=== PATIENT | male | born 1955 | race African-American/Black ===

== ENCOUNTER 2016-06-28 01:17 | Emergency (ER) | payer MEDICARE, MEDICAID ==
[~2016-06-28] VITALS: Ht 165.1 cm; Wt 59.0 kg
[~2016-06-28 01:17] MED LIST: ALBU8.5H5 INH; AMLO5TAB2 PO; ASPI81TA50 PO; CEFT1FRO2 IVPB; CYCL-259 PO; DIAZ5TAB PO; ENAL10TA PO; GABA300C PO; HYDR-3307 PO; METR500P29 IVPB; NICO1PAT4 TD; PANT40TA3 PO; TAMS-11 PO
[2016-06-28] MEDS ORDERED: KETOROLAC 30 MG/1 ML IM ONE (03:00)
[2016-06-28] MEDS ORDERED: KETOROLAC 30 MG/1 ML ONE (03:23)
[2016-06-28 03:36] VITALS: BP 117/81
== END 2016-06-28 03:38 | disposition home or self-care (01) ==
LOC: ED 03:30
DX: S90.32XA Contusion of left foot, initial encounter (principal); I10 Essential (primary) hypertension; M54.16 Radiculopathy, lumbar region; Z88.5 Allergy status to narcotic agent; W20.8XXA Other cause of strike by thrown, projected or falling object, initial encounter; Y93.89 Activity, other specified; Y99.8 Other external cause status; Y92.009 Unspecified place in unspecified non-institutional (private) residence as the place of occurrence of the external cause
CPT/HCPCS: 73630; 96372; 99284; J1885

== ENCOUNTER 2016-08-31 01:47 | Emergency (ER) | payer MEDICARE, MEDICAID ==
[~2016-08-31] VITALS: Ht 165.1 cm; Wt 52.1 kg
[2016-08-31] MEDS ORDERED: DIPHENHYDRAMINE 25 MG CAPSULE ONE (02:45)
[2016-08-31] MEDS ORDERED: PREG150C PO (02:51)
[2016-08-31] MEDS ORDERED: DULO30CA2 PO (02:51)
[2016-08-31] MEDS ORDERED: DIPHENHYDRAMINE 25 MG CAPSULE PO ONE (03:00)
[2016-08-31 03:29] VITALS: BP 126/80
== END 2016-08-31 03:36 ==
LOC: ED 03:33
DX: R21 Rash and other nonspecific skin eruption (principal); L42 Pityriasis rosea; I10 Essential (primary) hypertension; M19.90 Unspecified osteoarthritis, unspecified site
CPT/HCPCS: 99283; J7512; Q0163

== ENCOUNTER → 2017-06-23 | Outpatient (CLI) | payer MEDICARE, MEDICAID ==
[~2017-06-23] MED LIST changes: +AMIT50TA PO; +DULO30CA2 PO; +FENT1PAT9 TD; +HYDR-3245 PO; +NICO-486 TD; -NICO1PAT4 TD; +PREG150C PO
[2017-06-23 14:27] LABS: MEAN CORPUSCULAR HEMOGLOBIN 29.1 pg (27.5-34.5); MEAN CORPUSCULAR HGB CONC 32.1 g/dL (33.2-36.2); MEAN CORPUSCULAR VOLUME 90.4 fL (81-97); MEAN PLATELET VOLUME 7.5 fL (7.4-10.4); PLATELET COUNT 286 x10^3/uL (130-400); RED BLOOD COUNT 4.68 x10^6/uL (4.38-5.82); RED CELL DISTRIBUTION WIDTH 13.4 % (9.4-14.8)
[2017-06-23 14:35] LABS: MICROSCOPIC NOT IND
[2017-06-23 14:44] LABS: CULTURE INDICATED? NO
[2017-06-23 14:59] LABS: BASOPHILS # (AUTO) 0.05 x10^3/uL (0-0.1); BASOPHILS % (AUTO) 0 % (0-1); EOSINOPHILS # (AUTO) 0.02 x10^3/uL (0-0.4); EOSINOPHILS % (AUTO) 0 % (1-7); LYMPHOCYTES # (AUTO) 2.47 x10^3/uL (1-3.4); LYMPHOCYTES % (AUTO) 23 % (22-44); MD SCAN; MONOCYTES # (AUTO) 0.76 x10^3/uL (0.2-0.8); MONOCYTES % (AUTO) 7 % (2-9); NEUTROPHILS # (AUTO) 7.43 x10^3/uL (1.8-6.8); NEUTROPHILS % (AUTO) 69 % (42-75)
[2017-06-23 15:00] LABS: ALBUMIN 3.6 g/dL (3.4-5.0); ANION GAP 8 mmol/L (5-15); CALCIUM 8.5 mg/dL (8.5-10.1); CHLORIDE 108 mmol/L (98-107); INTERNATIONAL NORMALIZED RATIO 0.95 (0.93-1.1); PROTHROMBIN TIME 9.8 Seconds (9.6-11.5)
[2017-06-23 15:03] LABS: ALANINE AMINOTRANSFERASE 56 U/L (12-78); ALKALINE PHOSPHATASE 142 U/L (45-117); BILIRUBIN,TOTAL 0.7 mg/dL (0.2-1.0); TOTAL PROTEIN 7.2 g/dL (6.4-8.2)
== END | disposition home or self-care (01) ==
LOC: STAR 13:14
PROVIDERS: ATTEND Orthopaedic Surgery Orthopaedic Surgery of the Spine
DX: Z01.818 Encounter for other preprocedural examination (principal); I10 Essential (primary) hypertension; M48.061 Spinal stenosis, lumbar region without neurogenic claudication; Z87.891 Personal history of nicotine dependence
CPT/HCPCS: 36415; 71046; 80053; 81003; 85025; 85610; 85730; 93005

== ENCOUNTER 2017-06-28 06:48 | Inpatient (IN) | payer MEDICARE, MEDICAID ==
[~2017-06-28] VITALS: Ht 165.1 cm; Wt 55.6 kg
[2017-06-28 07:52] VITALS: BP 143/87
[2017-06-28] MEDS ORDERED: LACTATED RINGERS 1,000 ML IV SCH (07:52)
[2017-06-28] MEDS ORDERED: LIDOCAINE-MPF 1%, 2ML ONE (08:09)
[2017-06-28] MEDS ORDERED: LIDOCAINE/PF 0.5% ,50ML ONE (08:15)
[2017-06-28] MEDS ORDERED: BUPIVACAINE/PF 0.25% ONE (08:15)
[2017-06-28] MEDS ORDERED: THROMBIN 5,000 UNIT VIAL TP ONE (08:15)
[2017-06-28] MEDS ORDERED: EPINEPHRINE 1 MG/ML, 1ML ONE (08:16)
[2017-06-28] MEDS ORDERED: MIDAZOLAM 1 MG/ML, 2ML ONE (08:21)
[2017-06-28] MEDS ORDERED: FENTANYL PF 250 MCG/5ML ONE ×2 (08:22→10:15)
[2017-06-28] MEDS ORDERED: ROCURONIUM 10MG/ML,5ML ONE ×2 (08:23→10:15)
[2017-06-28] MEDS ORDERED: PROPOFOL 10 MG/ML, 20ML ONE (08:23)
[2017-06-28] MEDS ORDERED: GLYCOPYRROLATE 0.4 MG/2 ML, 2ML ONE ×2 (08:24→11:28)
[2017-06-28] MEDS ORDERED: NEOSTIGMINE 1 MG/ML, 10ML ONE (08:24)
[2017-06-28] MEDS ORDERED: CEFAZOLIN 1,000 MG ONE ×2 (08:25)
[2017-06-28] MEDS ORDERED: WATER-INJECTION,STERILE 10 ML IV ONE (08:25)
[2017-06-28] MEDS ORDERED: PROMETHAZINE 12.5 MG SUPP PR PRN (09:00)
[2017-06-28] MEDS ORDERED: ONDANSETRON 2MG/ML, 2ML IVPush PRN ×2 (09:00→13:30)
[2017-06-28] MEDS ORDERED: hydrALAzine 20 MG/ML, 1ML IV PRN (09:00)
[2017-06-28] MEDS ORDERED: OXYcodone 5 MG/5 ML ORAL.SOL UDC PO PRN (09:00)
[2017-06-28] MEDS ORDERED: ACETAMINOPHEN 325 MG TABLET PO PRN (09:00)
[2017-06-28] MEDS ORDERED: PROMETHAZINE 25 MG/ML, 1ML IV PRN (09:00)
[2017-06-28] MEDS ORDERED: LABETALOL 5MG/ML, 20ML IV PRN (09:00)
[2017-06-28] MEDS: VANCOMYCIN 1,000 MG ONE ×2 (10:28→11:15)
[2017-06-28] MEDS ORDERED: FENTANYL PF 100 MCG/2ML ONE ×2 (12:25→13:49)
[2017-06-28] MEDS ORDERED: ACETAMINOPHEN 650 MG/20.3 ML UDC ONE (12:25)
[2017-06-28] MEDS ORDERED: OXYcodone 5 MG/5 ML ORAL.SOL UDC ONE (12:25)
[2017-06-28] MEDS ORDERED: MEPERIDINE/PF 50 MG/ML ONE (12:25)
[2017-06-28] MEDS: FENTANYL PF 100 MCG/2ML IV PRN ×2 (12:28→12:38)
[2017-06-28] MEDS: MEPERIDINE/PF 25MG/0.5ML IVPush PRN ×2 (12:29→13:43)
[2017-06-28] MEDS ORDERED: HYDROmorphone 2 MG/ML, 1ML ONE (12:32)
[2017-06-28] MEDS: HYDROmorphone 1 MG/ML, 1ML IV PRN ×4 (12:33→13:38)
[2017-06-28] MEDS: DIAZEPAM 5 MG/ML, 2ML IVPush PRN ×2 (12:43→13:27)
[2017-06-28] MEDS ORDERED: BISACODYL 10 MG SUPP PR PRN (13:30)
[2017-06-28] MEDS ORDERED: LABETALOL 5MG/ML, 20ML IVPush PRN (13:30)
[2017-06-28] MEDS ORDERED: SENNA/DOCUSATE TABLET PO PRN (13:30)
[2017-06-28] MEDS ORDERED: PHARMACY MAY ADJ FOR RENAL FX MC PRN ×3 (13:30)
[2017-06-28] MEDS ORDERED: HYDROcodone/APAP 5/325 TABLET PO PRN (13:30)
[2017-06-28] MEDS ORDERED: HYDROcodone/APAP 10/325 MG TABLET PO PRN (13:30)
[2017-06-28] MEDS ORDERED: MAGNESIUM HYDROXIDE 8%, 30ML UDC PO PRN (13:30)
[2017-06-28] MEDS ORDERED: LABETALOL 5MG/ML 40ML VIAL IVPush SCH (13:30)
[2017-06-28] MEDS ORDERED: FENTANYL 1500 MCG/30 ML PCA IV PRN (14:00)
[2017-06-28 14:23] VITALS: BP 123/81
[2017-06-28] MEDS ORDERED: FENTANYL 25 MCG PATCH TD SCH (16:00)
[2017-06-28] MEDS: TAMSULOSIN 0.4 MG CAP.ER.24H PO SCH ×2 (16:55→22:52)
[2017-06-28] MEDS: CEFAZOLIN PMX 1GM/50ML 50 ML IVPB SCH (17:40)
[2017-06-28] MEDS: NS + 20MEQ KCL 1,000 ML IV SCH (17:41)
[2017-06-28 19:15] VITALS: BP 99/61
[2017-06-29] VITALS: BP 143/72
[2017-06-29] MEDS ORDERED: FENTANYL PF 100 MCG/2ML IV ONE
[2017-06-29] MEDS: METHOCARBAMOL 500 MG TABLET PO SCH ×5 (00:07→23:34)
[2017-06-29] MEDS: CEFAZOLIN PMX 1GM/50ML 50 ML IVPB SCH ×3 (01:29→17:22)
[2017-06-29 03:40] VITALS: BP 124/66
[2017-06-29 05:56] LABS: BASOPHILS # (AUTO) 0.03 x10^3/uL (0-0.1); BASOPHILS % (AUTO) 0 % (0-1); EOSINOPHILS # (AUTO) 0.03 x10^3/uL (0-0.4); EOSINOPHILS % (AUTO) 0 % (1-7); LYMPHOCYTES # (AUTO) 2.18 x10^3/uL (1-3.4); LYMPHOCYTES % (AUTO) 17 % (22-44); MD NO; MEAN CORPUSCULAR HEMOGLOBIN 29.2 pg (27.5-34.5); MEAN CORPUSCULAR HGB CONC 32.3 g/dL (33.2-36.2); MEAN CORPUSCULAR VOLUME 90.4 fL (81-97); MEAN PLATELET VOLUME 7.3 fL (7.4-10.4); MONOCYTES # (AUTO) 1.29 x10^3/uL (0.2-0.8); MONOCYTES % (AUTO) 10 % (2-9); NEUTROPHILS # (AUTO) 9.35 x10^3/uL (1.8-6.8); NEUTROPHILS % (AUTO) 73 % (42-75); PLATELET COUNT 255 x10^3/uL (130-400); RED BLOOD COUNT 3.67 x10^6/uL (4.38-5.82); RED CELL DISTRIBUTION WIDTH 13.8 % (9.4-14.8)
[2017-06-29 06:18] LABS: CALCIUM 8.1 mg/dL (8.5-10.1)
[2017-06-29 06:21] LABS: ANION GAP 8 mmol/L (5-15); CHLORIDE 110 mmol/L (98-107)
[2017-06-29] MEDS: NS + 20MEQ KCL 1,000 ML IV SCH ×2 (06:33→19:29)
[2017-06-29 07:20] VITALS: BP 136/83
[2017-06-29 07:42] VITALS: BP 114/77
[2017-06-29] MEDS ORDERED: AMLODIPINE 5 MG TABLET PO SCH (09:00)
[2017-06-29] MEDS ORDERED: TAMSULOSIN 0.4 MG CAP.ER.24H PO SCH (09:00)
[2017-06-29] MEDS ORDERED: KETOROLAC 30 MG/1 ML ONE (09:28)
[2017-06-29] MEDS ORDERED: FENTANYL 50 MCG PATCH TD SCH (09:30)
[2017-06-29] MEDS ORDERED: FENTANYL REMOVE PATCH NOTE XX SCH (09:30)
[2017-06-29] MEDS ORDERED: HYDROmorphone 2 MG/ML, 1ML IV ONE (09:30)
[2017-06-29] MEDS ORDERED: FENTANYL 1500 MCG/30 ML PCA IV PRN ×2 (09:30)
[2017-06-29] MEDS: MAGNESIUM HYDROXIDE 8%, 30ML UDC PO SCH ×2 (09:30→17:22)
[2017-06-29] MEDS ORDERED: KETOROLAC 30 MG/1 ML IV ONE (09:30)
[2017-06-29] MEDS: DOCUSATE 100 MG CAPSULE PO SCH (09:43)
[2017-06-29] MEDS ORDERED: HYDROmorphone 1 MG/ML, 1ML IV PRN (10:00)
[2017-06-29] MEDS ORDERED: HYDROmorphone 2 MG/ML, 1ML ONE (10:15)
[2017-06-29] MEDS: HYDROmorphone 2MG TABLET PO PRN ×4 (10:19→23:35)
[2017-06-29] MEDS: TAMSULOSIN 0.4 MG CAP.ER.24H PO SCH ×2 (12:06→19:29)
[2017-06-29 13:00] VITALS: BP 92/69
[2017-06-29 19:36] VITALS: BP 120/77
[2017-06-30] MEDS: CEFAZOLIN PMX 1GM/50ML 50 ML IVPB SCH ×2 (01:19→09:30)
[2017-06-30] MEDS: MAGNESIUM HYDROXIDE 8%, 30ML UDC PO SCH (01:19)
[2017-06-30 01:31] VITALS: BP 115/74
[2017-06-30] MEDS: HYDROmorphone 2MG TABLET PO PRN ×2 (03:34→07:34)
[2017-06-30 05:40] LABS: BASOPHILS # (AUTO) 0.09 x10^3/uL (0-0.1); BASOPHILS % (AUTO) 1 % (0-1); EOSINOPHILS # (AUTO) 0.11 x10^3/uL (0-0.4); EOSINOPHILS % (AUTO) 1 % (1-7); LYMPHOCYTES # (AUTO) 2.62 x10^3/uL (1-3.4); LYMPHOCYTES % (AUTO) 25 % (22-44); MD NO; MEAN CORPUSCULAR HEMOGLOBIN 29.5 pg (27.5-34.5); MEAN CORPUSCULAR HGB CONC 32.6 g/dL (33.2-36.2); MEAN CORPUSCULAR VOLUME 90.4 fL (81-97); MONOCYTES % (AUTO) 12 % (2-9); NEUTROPHILS # (AUTO) 6.42 x10^3/uL (1.8-6.8); NEUTROPHILS % (AUTO) 61 % (42-75); PLATELET COUNT 247 x10^3/uL (130-400); RED BLOOD COUNT 3.21 x10^6/uL (4.38-5.82)
[2017-06-30 05:51] LABS: ANION GAP 5 mmol/L (5-15); CALCIUM 7.9 mg/dL (8.5-10.1); CHLORIDE 111 mmol/L (98-107); CREATININE 0.52 mg/dL (0.7-1.3)
[2017-06-30] MEDS: METHOCARBAMOL 500 MG TABLET PO SCH ×2 (05:54→12:02)
[2017-06-30 07:02] VITALS: BP 124/66
[2017-06-30] MEDS ORDERED: HYDROmorphone 2 MG/ML, 1ML ONE (07:28)
[2017-06-30] MEDS: NS + 20MEQ KCL 1,000 ML IV SCH (07:34)
[2017-06-30] MEDS ORDERED: AMLODIPINE 5 MG TABLET PO SCH (09:26)
[2017-06-30] MEDS ORDERED: BISACODYL 10 MG SUPP PR ONE (09:30)
[2017-06-30] MEDS: TAMSULOSIN 0.4 MG CAP.ER.24H PO SCH (09:39)
[2017-06-30] MEDS: OXYcodone IR 5MG TABLET PO PRN ×2 (09:40→13:20)
[2017-06-30] MEDS: DOCUSATE 100 MG CAPSULE PO SCH (10:38)
[2017-06-30 13:57] VITALS: BP 113/75
[2017-06-30] MEDS ORDERED: CEPH-368 PO (15:13)
[2017-06-30] MEDS ORDERED: OXYC10TA6 PO (15:13)
[2017-06-30] MEDS ORDERED: METHOCARBAMOL 750 MG TABLET PO SCH (21:30)
[2017-07-01] MEDS ORDERED: FENTANYL REMOVE PATCH NOTE XX SCH (16:00)
== END 2017-06-30 15:19 | disposition home or self-care (01) | DRG 460 ==
LOC: ORIP 06:48 → 4NOR 14:18 → DCLOUNGE 06-30 15:10
PROVIDERS: ADMIT Orthopaedic Surgery Orthopaedic Surgery of the Spine; ATTEND Orthopaedic Surgery Orthopaedic Surgery of the Spine
PROC: 0SP00AZ Removal of Interbody Fusion Device from Lumbar Vertebral Joint, Open Approach (ICD-10-PCS; 2017-06-28)
PROC: 0SG00K1 Fusion of Lumbar Vertebral Joint with Nonautologous Tissue Substitute, Posterior Approach, Posterior Column, Open Approach (ICD-10-PCS; principal; 2017-06-28 09:00)
DX: M48.061 Spinal stenosis, lumbar region without neurogenic claudication (principal); F17.210 Nicotine dependence, cigarettes, uncomplicated; M43.16 Spondylolisthesis, lumbar region; G89.29 Other chronic pain; N40.0 Benign prostatic hyperplasia without lower urinary tract symptoms; I10 Essential (primary) hypertension; Z88.6 Allergy status to analgesic agent
CPT/HCPCS: 36415; 72100; 80048; 85025; C1713; J0171; J0690; J1170; J1885; J2001; J2175; J2250; J2704; J2710; J3010; J3360; J3370; J3480; J3490; C1762; J7120

== ENCOUNTER 2017-09-24 15:17 | Inpatient (IN) | payer MEDICARE, MEDICAID ==
[~2017-09-24] VITALS: Ht 165.1 cm; Wt 53.0 kg
[~2017-09-24 15:17] MED LIST changes: +CEPH-368 PO; +OXYC10TA6 PO
[2017-09-24] MEDS ORDERED: SODIUM CHLORIDE 0.9% 1,000ML IVBOLUS ONE (15:30)
[2017-09-24] MEDS ORDERED: OXYcodone/APAP 5/325MG TABLET PO ONE (15:30)
[2017-09-24] MEDS ORDERED: SODIUM CHLORIDE FLUSH 10ML SYR IVF ONE (15:30)
[2017-09-24] MEDS ORDERED: OXYcodone/APAP 5/325MG TABLET ONE (16:00)
[2017-09-24] MEDS ORDERED: PLEASE ENTER HEIGHT AND WEIGHT MC SCH (16:00)
[2017-09-24 16:08] LABS: BASOPHILS # (AUTO) 0.04 x10^3/uL (0-0.1); BASOPHILS % (AUTO) 0 % (0-1); EOSINOPHILS # (AUTO) 0.02 x10^3/uL (0-0.4); EOSINOPHILS % (AUTO) 0 % (1-7); LYMPHOCYTES # (AUTO) 3.97 x10^3/uL (1-3.4); LYMPHOCYTES % (AUTO) 24 % (22-44); MD NO; MEAN CORPUSCULAR HEMOGLOBIN 28.9 pg (27.5-34.5); MEAN CORPUSCULAR HGB CONC 32.7 g/dL (33.2-36.2); MEAN CORPUSCULAR VOLUME 88.5 fL (81-97); MONOCYTES # (AUTO) 0.89 x10^3/uL (0.2-0.8); MONOCYTES % (AUTO) 5 % (2-9); NEUTROPHILS # (AUTO) 11.47 x10^3/uL (1.8-6.8); NEUTROPHILS % (AUTO) 70 % (42-75); PLATELET COUNT 335 x10^3/uL (130-400); RED BLOOD COUNT 4.67 x10^6/uL (4.38-5.82); RED CELL DISTRIBUTION WIDTH 14.8 % (9.4-14.8)
[2017-09-24 16:15] LABS: ALANINE AMINOTRANSFERASE 33 U/L (12-78); ALBUMIN 3.8 g/dL (3.4-5.0); ANION GAP 9 mmol/L (5-15); CALCIUM 8.4 mg/dL (8.5-10.1); CHLORIDE 115 mmol/L (98-107); CREATININE 0.81 mg/dL (0.7-1.3)
[2017-09-24 16:20] LABS: ALKALINE PHOSPHATASE 148 U/L (45-117); BILIRUBIN,TOTAL 0.6 mg/dL (0.2-1.0); TOTAL PROTEIN 7.3 g/dL (6.4-8.2); TROPONIN I < 0.015 ng/mL (0.000-0.045)
[2017-09-24] MEDS ORDERED: GUAIFENESIN/DM 200-20MG, 10ML UDC PO PRN (18:00)
[2017-09-24] MEDS ORDERED: DOCUSATE 100 MG CAPSULE PO PRN (18:00)
[2017-09-24] MEDS ORDERED: hydrALAzine 20 MG/ML, 1ML IVPush PRN (18:00)
[2017-09-24] MEDS ORDERED: ONDANSETRON 2MG/ML, 2ML IVPush PRN (18:00)
[2017-09-24 18:47] VITALS: BP 152/81
[2017-09-24] MEDS: ENOXAPARIN 40 MG/0.4 ML SQ SCH (18:58)
[2017-09-24] MEDS: ACETAMINOPHEN 325 MG TABLET PO PRN ×2 (18:58→23:17)
[2017-09-24 19:44] VITALS: BP 149/81
[2017-09-24] MEDS: NICOTINE 14MG/24 HR PATCH.TD24 TD SCH (19:57)
[2017-09-24] MEDS: AMITRIPTYLINE 50 MG TABLET PO SCH (19:57)
[2017-09-24] MEDS: OXYcodone IR 5MG TABLET PO PRN (20:25)
[2017-09-24 22:19] LABS: TROPONIN I < 0.015 ng/mL (0.000-0.045)
[2017-09-25 00:34] VITALS: BP 140/82
[2017-09-25] MEDS: OXYcodone IR 5MG TABLET PO PRN ×5 (01:37→23:06)
[2017-09-25 05:15] LABS: CHLORIDE 113 mmol/L (98-107)
[2017-09-25 05:18] LABS: BASOPHILS # (AUTO) 0.04 x10^3/uL (0-0.1); BASOPHILS % (AUTO) 1 % (0-1); EOSINOPHILS # (AUTO) 0.04 x10^3/uL (0-0.4); EOSINOPHILS % (AUTO) 0 % (1-7); LYMPHOCYTES # (AUTO) 3.68 x10^3/uL (1-3.4); LYMPHOCYTES % (AUTO) 41 % (22-44); MD NO; MEAN CORPUSCULAR HEMOGLOBIN 28.8 pg (27.5-34.5); MEAN CORPUSCULAR HGB CONC 32.5 g/dL (33.2-36.2); MEAN CORPUSCULAR VOLUME 88.6 fL (81-97); MEAN PLATELET VOLUME 7.6 fL (7.4-10.4); MONOCYTES # (AUTO) 0.72 x10^3/uL (0.2-0.8); MONOCYTES % (AUTO) 8 % (2-9); NEUTROPHILS # (AUTO) 4.41 x10^3/uL (1.8-6.8); NEUTROPHILS % (AUTO) 50 % (42-75); PLATELET COUNT 306 x10^3/uL (130-400); RED BLOOD COUNT 4.18 x10^6/uL (4.38-5.82); RED CELL DISTRIBUTION WIDTH 14.7 % (9.4-14.8)
[2017-09-25 05:27] LABS: HEMOGLOBIN A1C 5.6 % (4.2-6.3)
[2017-09-25 05:32] LABS: ANION GAP 9 mmol/L (5-15); CALCIUM 8.2 mg/dL (8.5-10.1); CHOL/HDL RATIO 2.4; CHOLESTEROL, TOTAL 141 mg/dL (140-239); CREATININE 0.62 mg/dL (0.7-1.3); HDL CHOL % 42 % (26-37); HDL CHOLESTEROL (DIRECT) 59 mg/dL (40-60); LDL CHOLESTEROL,CALCULATED 67 mg/dL (54-169); LDL/HDL RATIO 1.1 (0.5-3.0); TRIGLYCERIDES 75 mg/dL (50-200); TROPONIN I < 0.015 ng/mL (0.000-0.045); VLDL CHOLESTEROL 15 mg/dL (0-25)
[2017-09-25 08:00] VITALS: BP 142/96
[2017-09-25] MEDS: AMLODIPINE 5 MG TABLET PO SCH (09:15)
[2017-09-25] MEDS: TAMSULOSIN 0.4 MG CAP.ER.24H PO SCH (09:15)
[2017-09-25] MEDS: DIPHENHYDRAMINE 25 MG CAPSULE PO PRN (09:57)
[2017-09-25 13:25] VITALS: BP 144/90
[2017-09-25] MEDS: ENOXAPARIN 40 MG/0.4 ML SQ SCH (18:06)
[2017-09-25 19:24] VITALS: BP 150/83
[2017-09-25] MEDS: AMITRIPTYLINE 50 MG TABLET PO SCH (20:03)
[2017-09-25] MEDS: NICOTINE 14MG/24 HR PATCH.TD24 TD SCH (20:03)
[2017-09-26 00:57] VITALS: BP 147/79
[2017-09-26] MEDS: OXYcodone IR 5MG TABLET PO PRN ×2 (05:54→10:03)
[2017-09-26 07:31] VITALS: BP 152/84
[2017-09-26] MEDS: DIPHENHYDRAMINE 25 MG CAPSULE PO PRN (08:08)
[2017-09-26] MEDS: TAMSULOSIN 0.4 MG CAP.ER.24H PO SCH (08:08)
[2017-09-26] MEDS: AMLODIPINE 5 MG TABLET PO SCH (08:08)
[2017-09-26] MEDS: ACETAMINOPHEN 325 MG TABLET PO PRN (08:17)
[2017-09-26] MEDS ORDERED: ASPI-621 PO (09:53)
== END 2017-09-26 11:37 | disposition home or self-care (01) | DRG 316 ==
LOC: ED 17:04 → EDIP 17:09 → ED 17:22 → 4EST 18:08 → DCLOUNGE 09-26 11:30
PROVIDERS: ADMIT Hospitalist; ATTEND Hospitalist
DX: I95.9 Hypotension, unspecified (principal); R55 Syncope and collapse; D72.829 Elevated white blood cell count, unspecified; F10.120 Alcohol abuse with intoxication, uncomplicated; Y90.9 Presence of alcohol in blood, level not specified; F17.200 Nicotine dependence, unspecified, uncomplicated; I10 Essential (primary) hypertension; N40.0 Benign prostatic hyperplasia without lower urinary tract symptoms; Z82.49 Family history of ischemic heart disease and other diseases of the circulatory system; S00.03XA Contusion of scalp, initial encounter; Z88.6 Allergy status to analgesic agent; X58.XXXA Exposure to other specified factors, initial encounter; Y93.89 Activity, other specified; Y92.89 Other specified places as the place of occurrence of the external cause; Y99.8 Other external cause status; G89.29 Other chronic pain; M54.9 Dorsalgia, unspecified; Z90.49 Acquired absence of other specified parts of digestive tract; Z98.1 Arthrodesis status
CPT/HCPCS: 0399T; 36415; 70450; 71045; 72125; 80048; 80053; 80061; 83036; 83735; 84100; 84443; 84484; 85025; 93005; 93306; 93880; 96360; J1650; J7030; Q0163

== ENCOUNTER 2018-03-24 19:44 | Emergency (ER) | payer MEDICARE, MEDICAID ==
[~2018-03-24] VITALS: Ht 165.1 cm; Wt 53.9 kg
[~2018-03-24 19:44] MED LIST changes: +AMLO-150 PO; -AMLO5TAB2 PO; +ASPI81TA45 PO
[2018-03-24 19:46] VITALS: BP 135/90
--- NOTE | 2018-03-24 20:15 | NUR ---
PT ARRIVES FROM HOME TODAY AFTER HAVING CHEST PAIN START LAST NIGHT. PT REPORTS THAT THIS MORNING WHEN HE WOKE UP HE WOKE UP SWEATING WHICH IS VERY ABNORMAL. PT REPORTS THAT HIS PAIN STARTED HAVING EPIGASTRIC PAIN AND THAT RADIATED ON LEFT SIDE OF CHEST. PT REPORTS THAT THE PAIN GET BETTER WITH REST. PT ALSO HAS HAD A FL MANY YEARS AGO. PT CONNECTED TO MONITORS AND CALL LIGHT IN REACH. AWAITING FURTHER ORDERS.
[2018-03-24 20:36] LABS: BASOPHILS # (AUTO) 0.04 x10^3/uL (0-0.1); BASOPHILS % (AUTO) 1 % (0-1); EOSINOPHILS # (AUTO) 0.04 x10^3/uL (0-0.4); EOSINOPHILS % (AUTO) 1 % (1-7); LYMPHOCYTES # (AUTO) 2.31 x10^3/uL (1-3.4); LYMPHOCYTES % (AUTO) 28 % (22-44); MD NO; MEAN CORPUSCULAR HEMOGLOBIN 31.6 pg (27.5-34.5); MEAN CORPUSCULAR VOLUME 95.6 fL (81-97); MEAN PLATELET VOLUME 7.2 fL (7.4-10.4); MONOCYTES # (AUTO) 0.62 x10^3/uL (0.2-0.8); MONOCYTES % (AUTO) 8 % (2-9); NEUTROPHILS % (AUTO) 63 % (42-75); PLATELET COUNT 272 x10^3/uL (130-400); RED CELL DISTRIBUTION WIDTH 14.3 % (9.4-14.8)
[2018-03-24 20:41] LABS: INTERNATIONAL NORMALIZED RATIO 0.93 (0.93-1.1); PROTHROMBIN TIME 9.9 Seconds (9.6-11.5)
[2018-03-24 20:42] LABS: ALANINE AMINOTRANSFERASE 28 U/L (12-78); ALBUMIN 3.7 g/dL (3.4-5.0); ANION GAP 10 mmol/L (5-15); CALCIUM 9.1 mg/dL (8.5-10.1); CHLORIDE 108 mmol/L (98-107)
[2018-03-24 20:47] LABS: ALKALINE PHOSPHATASE 123 U/L (45-117); BILIRUBIN,TOTAL 0.5 mg/dL (0.2-1.0); CREATININE 0.66 mg/dL (0.7-1.3); TOTAL PROTEIN 7.2 g/dL (6.4-8.2); TROPONIN I < 0.015 ng/mL (0.000-0.045)
--- NOTE | 2018-03-24 21:10 | NUR ---
PT AT THIS TIME WOULD LIKE TO GO HOME DESPITE MD MILLER RECOMENDATION TO STAY. DR. CAMARILLO INFORMED PT TO COME BACK IF HE HAS ANY CONCERNING SYMPTOMS OR DISTRESS. PT VERBALIZED UNDERSTANDING OF RISKS AND WOULD STILL LIKE TO GO HOME.
--- NOTE | 2018-03-24 21:13 | NUR ---
Patient/Caregiver given discharge instructions and they have confirmed that they understand the instructions. Patient ambulatory with steady gait.
== END 2018-03-24 21:34 | disposition home or self-care (01) ==
LOC: ED 21:15
DX: R07.9 Chest pain, unspecified (principal); M19.90 Unspecified osteoarthritis, unspecified site; I10 Essential (primary) hypertension
CPT/HCPCS: 36415; 71045; 80053; 83690; 84484; 85025; 85610; 85730; 93005; 99284

== ENCOUNTER 2018-04-06 20:14 | Inpatient (IN) | payer MEDICARE, MEDICAID ==
[~2018-04-06] VITALS: Ht 165.1 cm; Wt 53.8 kg
--- NOTE | 2018-04-06 20:41 | NUR ---
PT TO CT
--- NOTE | 2018-04-06 20:41 | NUR ---
Angella rossi in [facility] - 04/06/18 at 2041 by LUIS PT TO RAD
[2018-04-06 21:01] LABS: BASOPHILS # (AUTO) 0.02 x10^3/uL (0-0.1); BASOPHILS % (AUTO) 0 % (0-1); EOSINOPHILS # (AUTO) 0.02 x10^3/uL (0-0.4); EOSINOPHILS % (AUTO) 0 % (1-7); LYMPHOCYTES % (AUTO) 37 % (22-44); MD NO; MEAN CORPUSCULAR HEMOGLOBIN 31.7 pg (27.5-34.5); MEAN PLATELET VOLUME 7.3 fL (7.4-10.4); MONOCYTES # (AUTO) 0.56 x10^3/uL (0.2-0.8); MONOCYTES % (AUTO) 8 % (2-9); NEUTROPHILS # (AUTO) 4.05 x10^3/uL (1.8-6.8); NEUTROPHILS % (AUTO) 55 % (42-75); PLATELET COUNT 257 x10^3/uL (130-400); RED BLOOD COUNT 4.19 x10^6/uL (4.38-5.82); RED CELL DISTRIBUTION WIDTH 15.1 % (9.4-14.8)
[2018-04-06 21:10] LABS: ALANINE AMINOTRANSFERASE 50 U/L (12-78); ANION GAP 11 mmol/L (5-15); CALCIUM 8.3 mg/dL (8.5-10.1); CHLORIDE 113 mmol/L (98-107); CREATININE 0.66 mg/dL (0.7-1.3)
[2018-04-06 21:14] LABS: ALKALINE PHOSPHATASE 151 U/L (45-117); BILIRUBIN,TOTAL 0.6 mg/dL (0.2-1.0); TROPONIN I < 0.015 ng/mL (0.000-0.045)
[2018-04-06] MEDS: SODIUM CHLORIDE FLUSH 10ML SYR IVF SCH (22:30)
[2018-04-06] MEDS ORDERED: BISACODYL 10 MG SUPP PR PRN (22:30)
[2018-04-06] MEDS ORDERED: ONDANSETRON ODT 4 MG PO PRN (22:30)
[2018-04-06] MEDS ORDERED: POLYETHYLENE GLYCOL 17 GM PACKET PO PRN (22:30)
--- NOTE | 2018-04-06 22:33 | NUR ---
CALLED 4TH FLOOR NURSE BACK TO GIVE REPORT. RN UNAVAILABLE, SHE WILL CALL BACK
--- NOTE | 2018-04-06 22:35 | NUR ---
REPORT GIVEN TO IBAN HARDWICK
--- NOTE | 2018-04-06 23:00 | NUR ---
PT OUT OF ROOM. UNABLE TO TRANSPORT AT THIS TIME.
[2018-04-07] VITALS (11 sets, daily range): BP systolic 123–164; BP diastolic 80–106
[2018-04-07] MEDS: NICOTINE 14MG/24 HR PATCH.TD24 TD SCH (00:09)
[2018-04-07] MEDS: ACETAMINOPHEN 325 MG TABLET PO PRN ×3 (00:09→20:16)
[2018-04-07] MEDS: AMITRIPTYLINE 50 MG TABLET PO SCH ×2 (00:09→20:16)
[2018-04-07] MEDS ORDERED: HYDROcodone/APAP 5/325 TABLET PO ONE (03:00)
[2018-04-07 05:56] LABS: BASOPHILS # (AUTO) 0.04 x10^3/uL (0-0.1); BASOPHILS % (AUTO) 1 % (0-1); EOSINOPHILS # (AUTO) 0.06 x10^3/uL (0-0.4); EOSINOPHILS % (AUTO) 1 % (1-7); LYMPHOCYTES # (AUTO) 2.92 x10^3/uL (1-3.4); LYMPHOCYTES % (AUTO) 33 % (22-44); MD NO; MEAN CORPUSCULAR HEMOGLOBIN 31.7 pg (27.5-34.5); MEAN CORPUSCULAR HGB CONC 33.2 g/dL (33.2-36.2); MEAN CORPUSCULAR VOLUME 95.6 fL (81-97); MEAN PLATELET VOLUME 6.8 fL (7.4-10.4); MONOCYTES # (AUTO) 0.61 x10^3/uL (0.2-0.8); MONOCYTES % (AUTO) 7 % (2-9); NEUTROPHILS # (AUTO) 5.31 x10^3/uL (1.8-6.8); NEUTROPHILS % (AUTO) 59 % (42-75); PLATELET COUNT 237 x10^3/uL (130-400); RED BLOOD COUNT 3.84 x10^6/uL (4.38-5.82); RED CELL DISTRIBUTION WIDTH 14.6 % (9.4-14.8)
[2018-04-07 06:11] LABS: ALBUMIN 3.4 g/dL (3.4-5.0); ANION GAP 11 mmol/L (5-15); CALCIUM 7.9 mg/dL (8.5-10.1); CHLORIDE 112 mmol/L (98-107)
[2018-04-07 06:17] LABS: ALANINE AMINOTRANSFERASE 41 U/L (12-78); ALKALINE PHOSPHATASE 134 U/L (45-117); TOTAL PROTEIN 6.2 g/dL (6.4-8.2); TROPONIN I < 0.015 ng/mL (0.000-0.045)
[2018-04-07] MEDS: SENNA/DOCUSATE TABLET PO SCH (09:00)
[2018-04-07] MEDS: SODIUM CHLORIDE FLUSH 10ML SYR IVF SCH ×2 (09:00→20:17)
[2018-04-07] MEDS: AMLODIPINE 10 MG TAB PO SCH (10:03)
[2018-04-07] MEDS: TAMSULOSIN 0.4 MG CAP.ER.24H PO SCH (10:04)
[2018-04-07 12:07] LABS: TROPONIN I < 0.015 ng/mL (0.000-0.045)
[2018-04-07 12:24] LABS: MICROSCOPIC NOT IND
[2018-04-07 12:26] LABS: CULTURE INDICATED? NO
[2018-04-07 12:47] LABS: AMPHETAMINE SCREEN, URINE Negative (Negative); BARBITURATE SCREEN, URINE Negative (Negative); BENZODIAZEPINE SCREEN, URINE Negative (Negative); CANNABINOID SCREEN, URINE Negative (Negative); COCAINE SCREEN, URINE Negative (Negative); METHADONE SCREEN, URINE Negative (Negative); OPIATE SCREEN, URINE Positive (Negative)
[2018-04-08] MEDS: NICOTINE 14MG/24 HR PATCH.TD24 TD SCH (00:02)
[2018-04-08 04:40] VITALS: BP_SYST 154; BP_SYST 158; BP_SYST 162; BP_DIAS 100; BP_DIAS 104; BP_DIAS 105
[2018-04-08] MEDS: ACETAMINOPHEN 325 MG TABLET PO PRN ×2 (04:56→10:53)
[2018-04-08] MEDS: SENNA/DOCUSATE TABLET PO SCH (08:01)
[2018-04-08 08:15] VITALS: BP_SYST 135; BP_SYST 147; BP_SYST 151; BP_DIAS 89; BP_DIAS 93; BP_DIAS 97
[2018-04-08] MEDS: AMLODIPINE 10 MG TAB PO SCH (08:51)
[2018-04-08] MEDS: TAMSULOSIN 0.4 MG CAP.ER.24H PO SCH (08:51)
[2018-04-08] MEDS: SODIUM CHLORIDE FLUSH 10ML SYR IVF SCH (08:52)
[2018-04-08 14:21] VITALS: BP 123/87
== END 2018-04-08 16:19 | disposition left against medical advice (07) | DRG 73 ==
LOC: ED 21:24 → EDIP 21:37 → 4WST 23:40 → UNDODISIN 04-08 16:19
PROVIDERS: ADMIT Family Medicine; ATTEND Family Medicine
DX: G90.8 Other disorders of autonomic nervous system (principal); I61.0 Nontraumatic intracerebral hemorrhage in hemisphere, subcortical; M19.90 Unspecified osteoarthritis, unspecified site; M54.16 Radiculopathy, lumbar region; G89.29 Other chronic pain; S00.11XA Contusion of right eyelid and periocular area, initial encounter; G89.11 Acute pain due to trauma; I10 Essential (primary) hypertension; F10.20 Alcohol dependence, uncomplicated; Z53.21 Procedure and treatment not carried out due to patient leaving prior to being seen by health care provider; L72.3 Sebaceous cyst; W07.XXXA Fall from chair, initial encounter; Y93.39 Activity, other involving climbing, rappelling and jumping off; Y92.89 Other specified places as the place of occurrence of the external cause; Y99.8 Other external cause status; Z79.82 Long term (current) use of aspirin; Z82.49 Family history of ischemic heart disease and other diseases of the circulatory system; Z87.891 Personal history of nicotine dependence; Z90.49 Acquired absence of other specified parts of digestive tract
CPT/HCPCS: 36415; 70450; 70551; 71046; 72110; 80053; 80307; 81003; 84484; 85025; 93005; 93306; 93880; 95819; 99285; G0378

== ENCOUNTER 2018-07-17 22:03 | Emergency (ER) | payer MEDICARE, MEDICAID ==
[~2018-07-17] VITALS: Ht 165.1 cm; Wt 65.0 kg
--- NOTE | 2018-07-17 22:10 | NUR ---
PT BIB [facility] FOR C/O GLF WHILE FISHING. C/O R LEG PAIN.
--- NOTE | 2018-07-17 22:20 | NUR ---
PT TO XR VIA [facility].
[2018-07-17 23:14] VITALS: BP 125/97
--- NOTE | 2018-07-17 23:15 | NUR ---
D/C INSTRUCTIONS, MEDS, & F/U APPT RV'WD WITH PT, HE VERBALIZES UNDERSTANDING. PT AMBULATED OUT OF ED WITH WITHOUT DIFFICULTY.
== END 2018-07-17 23:24 | disposition home or self-care (01) ==
LOC: ED 23:00
DX: S80.01XA Contusion of right knee, initial encounter (principal); S70.11XA Contusion of right thigh, initial encounter; I10 Essential (primary) hypertension; M19.90 Unspecified osteoarthritis, unspecified site; W01.0XXA Fall on same level from slipping, tripping and stumbling without subsequent striking against object, initial encounter; Y93.89 Activity, other specified; Y92.89 Other specified places as the place of occurrence of the external cause; Y99.8 Other external cause status
CPT/HCPCS: 99283

== ENCOUNTER 2018-11-18 23:58 | Emergency (ER) | payer MEDICARE, MEDICAID ==
[~2018-11-18] VITALS: Ht 165.1 cm; Wt 50.8 kg
[~2018-11-18 23:58] MED LIST changes: -HYDR-3307 PO; +HYDR-36 PO
[2018-11-19 01:20] VITALS: BP 147/73
--- NOTE | 2018-11-19 01:21 | NUR ---
PT RESTING ON GURNEY, MONITORS IN PLACE, SIDERAILS UP X2, DENIES NEEDS, CALL LIGHT WITHIN REACH. AWAITING XRAY RESULTS
--- NOTE | 2018-11-19 01:36 | NUR ---
ERP AT PT'S BEDSIDE FOR RECHECK
[2018-11-19] MEDS ORDERED: KETOROLAC 60 MG/2 ML ONE (01:41)
--- NOTE | 2018-11-19 01:45 | NUR ---
PT MEDICATED PER MAR
[2018-11-19] MEDS ORDERED: KETOROLAC 30 MG/1 ML IM ONE (02:00)
== END 2018-11-19 02:01 | disposition home or self-care (01) ==
LOC: ED 11-19 00:51
DX: G89.11 Acute pain due to trauma (principal); M25.522 Pain in left elbow; M25.512 Pain in left shoulder; F17.200 Nicotine dependence, unspecified, uncomplicated; I10 Essential (primary) hypertension
CPT/HCPCS: 73060; 73080; 96372; 99283; J1885

== ENCOUNTER 2019-02-18 23:20 | Emergency (ER) | payer MEDICARE, MEDICAID ==
[~2019-02-18] VITALS: Ht 165.1 cm; Wt 50.0 kg
--- NOTE | 2019-02-18 23:37 | NUR ---
GLF X2 TODAY. W/ SECOND FALL, PT FELL OUT OF A TALL TRUCK. +LOC & HEADACHE. HIT HIS HEAD ON A STEEL POLE. NO C/O PAIN IN THE NECK. DENIES N/V. A+Ox4, ACTING APPROPRAITELY. AT BEDSIDE. PT RECENTLY HAD A SURGERY ON HIS BACK AND STATES THAT HIS LEFT LEG HAS NOT BEEN THAT SAME SINCE. PAIN 9/10 IN LEFT LEG/LEFT KNEE AREA. BEDRAILS UP X2. CALL LIGHT WITHIN REACH. WARM BLANKET PROVIDED.
[2019-02-19 01:45] VITALS: BP 148/96
== END 2019-02-19 01:48 | disposition home or self-care (01) ==
LOC: ED 23:39
DX: S00.83XA Contusion of other part of head, initial encounter (principal); I10 Essential (primary) hypertension; F17.200 Nicotine dependence, unspecified, uncomplicated; Z87.828 Personal history of other (healed) physical injury and trauma; W18.39XA Other fall on same level, initial encounter; Y93.89 Activity, other specified; Y92.89 Other specified places as the place of occurrence of the external cause; Y99.8 Other external cause status
CPT/HCPCS: 70450; 99284

== ENCOUNTER 2019-04-01 12:22 | Day surgery (SDC) | payer MEDICARE, MEDICAID ==
[~2019-04-01] VITALS: Ht 165.1 cm; Wt 49.0 kg
[2019-04-01] MEDS ORDERED: LACTATED RINGERS 1,000 ML IV SCH (12:48)
[2019-04-01 12:53] VITALS: BP 133/98
[2019-04-01] MEDS ORDERED: ACETAMINOPHEN 500 MG TABLET PO ONE (13:00)
[2019-04-01] MEDS ORDERED: GABAPENTIN 300 MG CAPSULE PO ONE (13:00)
[2019-04-01] MEDS ORDERED: OXYcodone 5 MG/5 ML ORAL.SOL UDC PO PRN (13:30)
[2019-04-01] MEDS ORDERED: EPHEDRINE 50 MG/ML, 1ML IVPush PRN (13:30)
[2019-04-01] MEDS ORDERED: HYDROmorphone 2 MG/ML, 1ML IVPush PRN (13:30)
[2019-04-01] MEDS ORDERED: PROMETHAZINE 25 MG/ML, 1ML IV PRN (13:30)
[2019-04-01] MEDS ORDERED: FENTANYL PF 100 MCG/2ML IV PRN (13:30)
[2019-04-01] MEDS ORDERED: hydrALAzine 20 MG/ML, 1ML IV PRN (13:30)
[2019-04-01] MEDS ORDERED: ONDANSETRON 2MG/ML, 2ML IV PRN (13:30)
[2019-04-01] MEDS ORDERED: MEPERIDINE/PF 25MG/ML,1ML IVPush PRN (13:30)
[2019-04-01] MEDS ORDERED: LIDOCAINE-MPF 1%, 2ML INFIL ONE (13:30)
[2019-04-01] MEDS ORDERED: LABETALOL 5MG/ML, 20ML IV PRN (13:30)
[2019-04-01] MEDS ORDERED: DEXAMETHASONE 4 MG/ML, 1ML ONE (14:03)
[2019-04-01] MEDS ORDERED: CEFAZOLIN 1,000 MG ONE (14:03)
[2019-04-01] MEDS ORDERED: PROPOFOL 10 MG/ML, 20ML ONE (14:03)
[2019-04-01] MEDS ORDERED: SUCCINYLCHOLINE 20 MG/ML, 10ML ONE (14:03)
[2019-04-01] MEDS ORDERED: ONDANSETRON 2MG/ML, 2ML ONE (14:03)
[2019-04-01] MEDS ORDERED: MIDAZOLAM 1 MG/ML, 2ML ONE (14:03)
[2019-04-01] MEDS ORDERED: FENTANYL PF 250 MCG/5ML ONE (14:05)
[2019-04-01] MEDS ORDERED: BUPIVACAINE/PF 0.5% ONE (14:23)
[2019-04-01] MEDS ORDERED: EPINEPHRINE 1 MG/ML, 1ML ONE (14:23)
[2019-04-01] MEDS ORDERED: METOPROLOL 1 MG/ML, 5ML ONE (14:59)
[2019-04-01] MEDS ORDERED: KETOROLAC 30 MG/1 ML ONE (14:59)
[2019-04-01] MEDS ORDERED: EPHEDRINE 50 MG/ML, 1ML ONE (15:22)
[2019-04-01] MEDS ORDERED: hydrALAzine 20 MG/ML, 1ML ONE (15:52)
[2019-04-01] MEDS ORDERED: FENTANYL PF 100 MCG/2ML ONE (15:52)
[2019-04-01] MEDS ORDERED: OXYcodone 5 MG/5 ML ORAL.SOL UDC ONE (16:07)
== END 2019-04-01 18:00 | disposition home or self-care (01) ==
LOC: OR 12:22 → OUT 18:00
PROVIDERS: ATTEND Surgery
DX: K45.8 Other specified abdominal hernia without obstruction or gangrene (principal); M79.89 Other specified soft tissue disorders; L76.32 Postprocedural hematoma of skin and subcutaneous tissue following other procedure; I10 Essential (primary) hypertension; F17.210 Nicotine dependence, cigarettes, uncomplicated; Z88.6 Allergy status to analgesic agent; Z87.39 Personal history of other diseases of the musculoskeletal system and connective tissue; Z98.890 Other specified postprocedural states
CPT/HCPCS: 22901; 49540; 88305; 93005; C1781; J0171; J0330; J0360; J0690; J1100; J1885; J2250; J2405; J2704; J3010; J7120

== ENCOUNTER 2019-04-01 19:44 | Observation (INO) | payer MEDICARE, MEDICAID ==
[~2019-04-01] VITALS: Ht 165.1 cm; Wt 50.4 kg
[2019-04-01] MEDS ORDERED: SODIUM CHLORIDE FLUSH 10ML SYR IVF ONE (20:00)
--- NOTE | 2019-04-01 20:14 | NUR ---
Pt alert and resting on gurney. Pt had surgery today for hernia repair per family member. Surgical site to left lateral abd has been bleeding since. It bled through one 4x4 bandage. Bleeding controlled at this time, but bright red blood noted on current bandage.
--- NOTE | 2019-04-01 20:36 | NUR ---
PIV placed. Lab at bedside for draw. PA at bedside.
[2019-04-01 20:45] LABS: BASOPHILS % (AUTO) 0 % (0-1); EOSINOPHILS % (AUTO) 0 % (1-7); LYMPHOCYTES # (AUTO) 0.27 x10^3/uL (1-3.4); LYMPHOCYTES % (AUTO) 4 % (22-44); MD NO; MEAN CORPUSCULAR HEMOGLOBIN 32.5 pg (27.5-34.5); MEAN CORPUSCULAR HGB CONC 32.6 g/dL (33.2-36.2); MEAN CORPUSCULAR VOLUME 99.9 fL (81-97); MEAN PLATELET VOLUME 7.5 fL (7.4-10.4); MONOCYTES # (AUTO) 0.16 x10^3/uL (0.2-0.8); MONOCYTES % (AUTO) 2 % (2-9); NEUTROPHILS # (AUTO) 7.41 x10^3/uL (1.8-6.8); NEUTROPHILS % (AUTO) 94 % (42-75); PLATELET COUNT 233 x10^3/uL (130-400); RED CELL DISTRIBUTION WIDTH 13.6 % (9.4-14.8)
[2019-04-01 20:56] LABS: ALANINE AMINOTRANSFERASE 60 U/L (12-78); ALBUMIN 3.6 g/dL (3.4-5.0); ANION GAP 10 mmol/L (5-15); CALCIUM 8.4 mg/dL (8.5-10.1); CHLORIDE 103 mmol/L (98-107); CREATININE 0.79 mg/dL (0.7-1.3)
--- NOTE | 2019-04-01 20:57 | NUR ---
Ice packs applied to hematom per .
[2019-04-01 20:59] LABS: ALKALINE PHOSPHATASE 329 U/L (45-117); BILIRUBIN,TOTAL 1.3 mg/dL (0.2-1.0); TOTAL PROTEIN 7.2 g/dL (6.4-8.2)
[2019-04-01 21:15] VITALS: BP 148/109
--- NOTE | 2019-04-01 21:15 | NUR ---
Report given to MINE SAFETY ENGINEER. Pt alert and resting on gurney. NAD. Pt and family aware of POC and agreeable.
[2019-04-01] MEDS ORDERED: BUPIVACAINE/PF-EPI 0.25% 1:200K ONE (21:42)
[2019-04-01] MEDS ORDERED: FENTANYL PF 250 MCG/5ML ONE (21:44)
[2019-04-01] MEDS ORDERED: ONDANSETRON 2MG/ML, 2ML IV PRN (22:00)
[2019-04-01] MEDS ORDERED: FENTANYL PF 100 MCG/2ML IV PRN (22:00)
[2019-04-01] MEDS ORDERED: OXYcodone 5 MG/5 ML ORAL.SOL UDC PO PRN (22:00)
[2019-04-01] MEDS ORDERED: hydrALAzine 20 MG/ML, 1ML IV PRN (22:00)
[2019-04-01] MEDS ORDERED: HYDROmorphone 2 MG/ML, 1ML IVPush PRN (22:00)
[2019-04-01] MEDS ORDERED: MEPERIDINE/PF 25MG/ML,1ML IVPush PRN (22:00)
[2019-04-01] MEDS ORDERED: LABETALOL 5MG/ML, 20ML IV PRN (22:00)
[2019-04-01] MEDS ORDERED: NEOSTIGMINE 1 MG/ML, 10ML ONE (22:15)
[2019-04-01] MEDS ORDERED: CEFAZOLIN 1,000 MG ONE (22:15)
[2019-04-01] MEDS ORDERED: GLYCOPYRROLATE 0.2MG/1ML, 5ML ONE (22:15)
[2019-04-01] MEDS ORDERED: SUCCINYLCHOLINE 20 MG/ML, 10ML ONE (22:15)
[2019-04-01] MEDS ORDERED: PROPOFOL 10 MG/ML, 20ML ONE (22:15)
[2019-04-01] MEDS ORDERED: ROCURONIUM 10MG/ML,5ML ONE (22:15)
[2019-04-01] MEDS ORDERED: hydrALAzine 20 MG/ML, 1ML ONE (22:19)
[2019-04-02] MEDS ORDERED: ONDANSETRON ODT 4 MG PO PRN (00:30)
== END 2019-04-02 00:20 | disposition home or self-care (01) ==
LOC: ED 20:42 → INTOOBSV 21:06 → EDIP 21:06 → 4NE 23:26
PROVIDERS: ADMIT Surgery; ATTEND Surgery
DX: M96.841 Postprocedural hematoma of a musculoskeletal structure following other procedure (principal); F17.210 Nicotine dependence, cigarettes, uncomplicated; I10 Essential (primary) hypertension; M54.16 Radiculopathy, lumbar region; K85.90 Acute pancreatitis without necrosis or infection, unspecified; J98.4 Other disorders of lung
CPT/HCPCS: 10180; 36415; 80053; 82962; 85025; 99284; C1760; G0378; J0330; J0360; J0690; J2704; J2710; J3010; 99285

== ENCOUNTER 2019-04-17 22:37 | Emergency (ER) | payer MEDICAID, MEDICARE ==
[~2019-04-17] VITALS: Ht 162.6 cm; Wt 48.0 kg
--- NOTE | 2019-04-17 23:30 | NUR ---
REPORT FROM LINO MEDELLIN RN. PLAN OF CARE DISCUSSED. THIS IS A 64 YO MALE COMING IN FOR SOB AND CHEST PAIN WITH COUGH FOR THE PAST 4 DAYS. PAIN IS STERNAL WITH SOB, LUNG SOUNDS CLEAR THROUGHOUT. CP DOES NOT RADIATE, RATED 4/10 AT THIS TIME. RECENT SURGERY FOR LEFT SIDED HERNIA REPAIR, INCISION IS CLEAN DRY AND INTACT. RIGHT SIDED LYPOMA REMOVAL, HEALING WELL. PATIENT HAS HX OF ASTHMA. SPEAKING IN FULL SENTENCES, NAD NOTED, VSS AT THIS TIME. ALL MONITORING IN PLACE.
[2019-04-17 23:36] LABS: BASOPHILS # (AUTO) 0.04 x10^3/uL (0-0.1); BASOPHILS % (AUTO) 1 % (0-1); EOSINOPHILS # (AUTO) 0.04 x10^3/uL (0-0.4); EOSINOPHILS % (AUTO) 1 % (1-7); LYMPHOCYTES # (AUTO) 2.24 x10^3/uL (1-3.4); LYMPHOCYTES % (AUTO) 32 % (22-44); MD NO; MEAN CORPUSCULAR HEMOGLOBIN 32.8 pg (27.5-34.5); MEAN CORPUSCULAR HGB CONC 32.7 g/dL (33.2-36.2); MEAN CORPUSCULAR VOLUME 100.2 fL (81-97); MONOCYTES # (AUTO) 0.45 x10^3/uL (0.2-0.8); MONOCYTES % (AUTO) 7 % (2-9); NEUTROPHILS # (AUTO) 4.19 x10^3/uL (1.8-6.8); NEUTROPHILS % (AUTO) 60 % (42-75); PLATELET COUNT 330 x10^3/uL (130-400); RED BLOOD COUNT 4.02 x10^6/uL (4.38-5.82); RED CELL DISTRIBUTION WIDTH 13.5 % (9.4-14.8)
--- NOTE | 2019-04-17 23:36 | NUR ---
PIV PLACED BY [facility], FLUSHES WELL.
[2019-04-17] MEDS ORDERED: ALBU18HF INH (23:37)
[2019-04-17 23:47] LABS: ALANINE AMINOTRANSFERASE 32 U/L (12-78); ALBUMIN 3.5 g/dL (3.4-5.0); ANION GAP 8 mmol/L (5-15); CALCIUM 8.2 mg/dL (8.5-10.1); CHLORIDE 113 mmol/L (98-107); CREATININE 0.67 mg/dL (0.7-1.3)
[2019-04-17 23:52] LABS: ALKALINE PHOSPHATASE 221 U/L (45-117); BILIRUBIN,TOTAL 0.5 mg/dL (0.2-1.0); TOTAL PROTEIN 7.2 g/dL (6.4-8.2); TROPONIN I < 0.015 ng/mL (0.000-0.045)
--- NOTE | 2019-04-18 00:15 | NUR ---
PATIENT TO CTA
[2019-04-18] MEDS ORDERED: OMNIPAQUE 350 MG/ML, 100ML BOTTLE ONE (00:30)
--- NOTE | 2019-04-18 01:45 | NUR ---
PATIENT AMBULATORY WITH STEADY GAIT TO DISCHARGE, GIVEN DISCHARGE PAPERWORK AND INSTRUCTIONS. PATIENT VERBALIZED UNDERSTANDING.
[2019-04-18 01:46] VITALS: BP 157/97
== END 2019-04-18 01:48 | disposition home or self-care (01) ==
LOC: ED 04-18 01:15
DX: R07.89 Other chest pain (principal); I10 Essential (primary) hypertension; J98.4 Other disorders of lung; F10.120 Alcohol abuse with intoxication, uncomplicated; F17.200 Nicotine dependence, unspecified, uncomplicated; Y90.9 Presence of alcohol in blood, level not specified
CPT/HCPCS: 36415; 71275; 80053; 80307; 84484; 85025; 93005; 99284; Q9967

== ENCOUNTER 2019-08-25 20:47 | Emergency (ER) | payer MEDICARE, MEDICAID ==
[~2019-08-25] VITALS: Ht 165.1 cm; Wt 55.6 kg
[~2019-08-25 20:47] MED LIST changes: +ALBU18HF INH; +HYDR-3246 PO; -HYDR-36 PO
[2019-08-25 20:56] VITALS: BP 111/75
[2019-08-25 22:21] LABS: BASOPHILS # (AUTO) 0.04 x10^3/uL (0-0.1); BASOPHILS % (AUTO) 1 % (0-1); EOSINOPHILS # (AUTO) 0.03 x10^3/uL (0-0.4); EOSINOPHILS % (AUTO) 0 % (1-7); LYMPHOCYTES # (AUTO) 2.15 x10^3/uL (1-3.4); LYMPHOCYTES % (AUTO) 28 % (22-44); MD NO; MEAN CORPUSCULAR HEMOGLOBIN 30.3 pg (27.5-34.5); MEAN CORPUSCULAR HGB CONC 32.6 g/dL (33.2-36.2); MEAN CORPUSCULAR VOLUME 92.9 fL (81-97); MEAN PLATELET VOLUME 6.7 fL (7.4-10.4); MONOCYTES # (AUTO) 0.88 x10^3/uL (0.2-0.8); MONOCYTES % (AUTO) 12 % (2-9); NEUTROPHILS # (AUTO) 4.59 x10^3/uL (1.8-6.8); NEUTROPHILS % (AUTO) 60 % (42-75); PLATELET COUNT 417 x10^3/uL (130-400); RED BLOOD COUNT 3.01 x10^6/uL (4.38-5.82); RED CELL DISTRIBUTION WIDTH 13.4 % (9.4-14.8)
[2019-08-25 22:30] LABS: ALANINE AMINOTRANSFERASE 26 U/L (12-78); ALBUMIN 2.1 g/dL (3.4-5.0); ANION GAP 5 mmol/L (5-15); CALCIUM 7.7 mg/dL (8.5-10.1); CHLORIDE 112 mmol/L (98-107); CREATININE 0.92 mg/dL (0.7-1.3)
[2019-08-25 22:35] LABS: ALKALINE PHOSPHATASE 134 U/L (45-117); BILIRUBIN,TOTAL 0.2 mg/dL (0.2-1.0)
[2019-08-25 23:20] LABS: MICROSCOPIC NOT IND
--- NOTE | 2019-08-25 23:55 | NUR ---
PATIENTS FAMILY ASKED FOR BLANKETS, BLANKETS PROVIDED FOR BOTH FAMILY AND PATIENT. PATIENT DISPLEASED WITH HIS ENTIRE ER VISIT DUE TO THE FACT THAT HE HAS BEEN IN THE ER 3 HOURS TOTAL.
== END 2019-08-26 00:25 | disposition home or self-care (01) ==
LOC: ED 08-26 00:17
DX: R60.0 Localized edema (principal); E88.09 Other disorders of plasma-protein metabolism, not elsewhere classified; M19.90 Unspecified osteoarthritis, unspecified site; I10 Essential (primary) hypertension; F17.210 Nicotine dependence, cigarettes, uncomplicated
CPT/HCPCS: 36415; 80053; 81003; 83880; 85025; 99283

== ENCOUNTER 2019-11-28 13:39 | Emergency (ER) | payer MEDICARE, MEDICAID ==
[~2019-11-28] VITALS: Ht 165.1 cm; Wt 50.0 kg
[~2019-11-28 13:39] MED LIST changes: -ENAL10TA PO; +ENAL10TA9 PO
--- NOTE | 2019-11-28 13:56 | NUR ---
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 PER EMS PTS FSBS WAS 34 UPON ARRIVAL. EMS GAVE 150ML OF D10 WHICH GAVE THEM A F/U FSBS OF 230. PT FSBS 118 UPON ARRIVAL TO THIS FACILITY. PT RESTING ON GURNEY W/ CALL LIGHT IN REACH AND FAMILY AT BEDSIDE. CONNECTED TO MONITORING, VSS, NADN. AWAITING ED EVAL.
--- NOTE | 2019-11-28 14:14 | NUR ---
report from lottie farrar. lab at bedside. as
--- NOTE | 2019-11-28 14:38 | NUR ---
REPORT FROM MULU YATES. PT CARE RESPONSIBLITIES ASSUMED.
[2019-11-28 14:41] LABS: ALBUMIN 2.7 g/dL (3.4-5.0); ANION GAP 8 mmol/L (5-15); CHLORIDE 110 mmol/L (98-107)
--- NOTE | 2019-11-28 14:50 | NUR ---
report to yonas farrar. as
[2019-11-28 14:51] LABS: MEAN CORPUSCULAR HEMOGLOBIN 32.1 pg (27.5-34.5); MEAN CORPUSCULAR HGB CONC 32.5 g/dL (33.2-36.2); MEAN CORPUSCULAR VOLUME 98.6 fL (81-97); MEAN PLATELET VOLUME 7.4 fL (7.4-10.4); PLATELET COUNT 160 x10^3/uL (130-400); RED BLOOD COUNT 3.73 x10^6/uL (4.38-5.82); RED CELL DISTRIBUTION WIDTH 15.4 % (9.4-14.8)
--- NOTE | 2019-11-28 15:34 | NUR ---
PT PROVIDED WITH LUNCH TRAY. AFTER EATING PT STATES THAT HE FEELS SHAKY, DIAPHORETIC, AND COLD HE DID PREVIOUSLY WHEN HIS BG WAS LOW. FSBG RECHECKED = 60. ORANGE JUICE, ANDREW CRACKERS AND PEANUT BUTTER PROVIDED TO PT. WILL CONTINUE TO MONITOR. CONTINUES AT BEDSIDE. PT DENIES ANY FURTHER NEEDS OR CONCERNS, CALL LIGHT IN REACH.
[2019-11-28 15:47] LABS: MD YES
[2019-11-28 16:02] LABS: BASOS#(MANUAL) 0.07 x10^3/uL (0-0.1); BASOS% (MANUAL) 2 % (0-1); LYMPH#(MANUAL) 0.63 x10^3/uL (1-3.4); LYMPHS% (MANUAL) 17 % (22-44); MONOS#(MANUAL) 0.37 x10^3/uL (0.3-2.7); MONOS% (MANUAL) 10 % (2-9); SEG#(MANUAL) 2.63 x10^3/uL (1.8-6.8); SEGS% (MANUAL) 71 % (42-75)
[2019-11-28 16:04] LABS: ANISOCYTOSIS 1+; OVALOCYTES 1+; TARGET CELLS 1+
[2019-11-28 16:05] LABS: <PLATELET ESTIMATE> ADEQUATE; HYPOCHROMIA 1+; TEAR DROPS 1+
[2019-11-28 16:06] LABS: <PLT MORPHOLOGY> NORMAL PLT MORPH
[2019-11-28 16:25] VITALS: BP 153/92
--- NOTE | 2019-11-28 16:25 | NUR ---
pt no longer sypmtomatic, high energy and talkative in room. Denies any cold sweats, shakes, or nausea. Pt verbalizes readiness for discharge at this time.
== END 2019-11-28 16:34 | disposition home or self-care (01) ==
LOC: ED 16:20
DX: E11.649 Type 2 diabetes mellitus with hypoglycemia without coma (principal); I10 Essential (primary) hypertension; F17.200 Nicotine dependence, unspecified, uncomplicated; M19.90 Unspecified osteoarthritis, unspecified site
CPT/HCPCS: 36415; 80048; 82040; 82962; 85025; 99283

== ENCOUNTER 2020-01-05 23:55 | Emergency (ER) | payer MEDICARE, MEDICAID ==
[~2020-01-05] VITALS: Ht 165.1 cm; Wt 48.0 kg
[2020-01-06] MEDS ORDERED: FENTANYL PF 100 MCG/2ML ONE (00:13)
[2020-01-06] MEDS ORDERED: ONDANSETRON 2MG/ML, 2ML ONE (00:13)
[2020-01-06] MEDS ORDERED: ONDANSETRON 2MG/ML, 2ML IVPush ONE (00:30)
[2020-01-06] MEDS ORDERED: FENTANYL PF 100 MCG/2ML IVPush ONE (00:30)
--- NOTE | 2020-01-06 00:38 | NUR ---
Patient BIB ambulance c/o L shoulder pain post GLF. Patient states he stood up and everything started spinning. Patient fell to the ground and heard his left shoulder pop, causing pain. Patient states he hit his head but denies LOC. Patient has a hx of dizziness. EMS admin Fentanyl for pain. Patient still c/o pain. Patient is in NAD. Respirations even and unlabored.
[2020-01-06 01:09] VITALS: BP 174/115
[2020-01-06] MEDS ORDERED: HYDROmorphone 1 MG/ML, 1ML INJ ONE (01:44)
[2020-01-06] MEDS ORDERED: HYDROmorphone 2 MG/ML, 1ML IVPush ONE (02:00)
--- NOTE | 2020-01-06 02:25 | NUR ---
Discharge instructions given. All questions and concerns addressed. Patient ambulatory with a steady gait. Belongings with patient.
== END 2020-01-06 02:27 | disposition home or self-care (01) ==
LOC: ED 01-06 00:10
DX: S42.222A 2-part displaced fracture of surgical neck of left humerus, initial encounter for closed fracture (principal); I10 Essential (primary) hypertension; M19.90 Unspecified osteoarthritis, unspecified site; W01.0XXA Fall on same level from slipping, tripping and stumbling without subsequent striking against object, initial encounter; Y93.89 Activity, other specified; Y92.009 Unspecified place in unspecified non-institutional (private) residence as the place of occurrence of the external cause; Y99.8 Other external cause status
CPT/HCPCS: 73030; 96374; 96375; 99284; J2405; J3010; 96376

== ENCOUNTER 2020-01-06 13:22 | Emergency (ER) | payer MEDICARE, MEDICAID ==
[~2020-01-06] VITALS: Ht 165.1 cm; Wt 48.0 kg
--- NOTE | 2020-01-06 13:50 | NUR ---
ICE PACK APPLIED TO PT'S LEFT SHOULDER. PT EDUCATED ON NEED TO RELAX SHOULDER, RATHER THAN HOLD TIGHTLY TO BODY. HOB MOVED FOR PT ABILITY TO TAKE PO MEDS AND POSITION SHOULDER APPROPRIATELY.
[2020-01-06] MEDS ORDERED: OXYcodone/APAP 7.5/325MG TABLET ONE (13:57)
[2020-01-06] MEDS ORDERED: OXYcodone/APAP 7.5/325MG TABLET PO ONE (14:00)
--- NOTE | 2020-01-06 14:45 | NUR ---
PT REPORTS SOME RELIEF FROM PAIN WITH PO MEDS. SLIGHTLY LAYING ON LEFT ARM DESPITE REPOSITIONING, CONTINUALLY SLIDES DOWN ON LEFT SIDE.
--- NOTE | 2020-01-06 15:20 | NUR ---
DISCUSSION WITH DEBBI REGARDING PT'S PAIN LEVEL AND BP. PT CONTINUES TO REFUSE TO STAY SITTING UP IN BED, HE SLOUCHES DOWN ONTO LEFT ARM.
[2020-01-06 15:28] VITALS: BP 160/106
--- NOTE | 2020-01-06 15:29 | NUR ---
ERMD IN TO ASSESS PT. DISCUSSES OPTIONS FOR ADDITIONAL TESTING FOR PT. PT REFUSES. WANTS TO LEAVE. PARTNER AT BEDSIDE.
== END 2020-01-06 16:00 | disposition home or self-care (01) ==
LOC: ED 13:58
DX: S42.292A Other displaced fracture of upper end of left humerus, initial encounter for closed fracture (principal); R00.0 Tachycardia, unspecified; I10 Essential (primary) hypertension; F17.200 Nicotine dependence, unspecified, uncomplicated; W18.30XA Fall on same level, unspecified, initial encounter; Y93.89 Activity, other specified; Y92.009 Unspecified place in unspecified non-institutional (private) residence as the place of occurrence of the external cause; Y99.8 Other external cause status
CPT/HCPCS: 93005; 99283

== ENCOUNTER 2020-02-12 15:58 | Emergency (ER) | payer MEDICARE, MEDICAID ==
[~2020-02-12] VITALS: Ht 162.6 cm; Wt 47.2 kg
[2020-02-12 16:50] LABS: PH, VENOUS 7.482 pH (7.320-7.420)
[2020-02-12 16:55] LABS: BASOPHILS % (AUTO) 1 % (0-1); EOSINOPHILS % (AUTO) 0 % (1-7); LYMPHOCYTES % (AUTO) 16 % (22-44); MEAN CORPUSCULAR HEMOGLOBIN 31.9 pg (27.5-34.5); MEAN PLATELET VOLUME 6.9 fL (7.4-10.4); MONOCYTES % (AUTO) 8 % (2-9); NEUTROPHILS % (AUTO) 75 % (42-75); PLATELET COUNT 284 x10^3/uL (130-400); RED BLOOD COUNT 3.73 x10^6/uL (4.38-5.82); RED CELL DISTRIBUTION WIDTH 13.7 % (9.4-14.8)
[2020-02-12 17:04] LABS: MD NO
[2020-02-12 17:06] LABS: ALANINE AMINOTRANSFERASE 36 U/L (12-78); ALBUMIN 2.3 g/dL (3.4-5.0); ANION GAP 8 mmol/L (5-15); CALCIUM 8.1 mg/dL (8.5-10.1); CHLORIDE 103 mmol/L (98-107); CREATININE 0.64 mg/dL (0.7-1.3)
[2020-02-12 17:08] LABS: ALKALINE PHOSPHATASE 303 U/L (45-117); TOTAL PROTEIN 5.8 g/dL (6.4-8.2)
--- NOTE | 2020-02-12 17:08 | NUR ---
FURNACE INSTALLER HELPER: PT TO ROOM FROM LOBBY VIA W/C
[2020-02-12 17:13] VITALS: BP 142/98
[2020-02-12 17:20] LABS: ACETONE, SERUM Negative (Negative)
[2020-02-12] MEDS ORDERED: ONDANSETRON 2MG/ML, 2ML IVPush ONE (18:00)
[2020-02-12] MEDS ORDERED: SODIUM CHLORIDE 0.9% 1,000ML IVBOLUS ONE (18:00)
[2020-02-12] MEDS ORDERED: SODIUM CHLORIDE FLUSH 10ML SYR IVF ONE (18:00)
[2020-02-12] MEDS ORDERED: ONDANSETRON 2MG/ML, 2ML ONE (18:11)
[2020-02-12 18:45] LABS: MICROSCOPIC NOT IND
[2020-02-12] MEDS ORDERED: OMNIPAQUE 350 MG/ML, 100ML BOTTLE ONE (19:14)
[2020-02-12] MEDS ORDERED: ACETAMINOPHEN 325 MG TABLET ONE (19:59)
[2020-02-12] MEDS ORDERED: ACETAMINOPHEN 325 MG TABLET PO ONE (20:00)
== END 2020-02-12 20:20 | disposition home or self-care (01) ==
LOC: ED 17:17
DX: R10.84 Generalized abdominal pain (principal); E10.65 Type 1 diabetes mellitus with hyperglycemia; R19.7 Diarrhea, unspecified; F17.200 Nicotine dependence, unspecified, uncomplicated
CPT/HCPCS: 36415; 74021; 74177; 80053; 81003; 82010; 82803; 82962; 83690; 85025; 96361; 96374; 99285; J2405; J7030; Q9967